=== PATIENT | male | born 1975 | race African-American/Black ===

== ENCOUNTER 2020-07-19 11:11 | Day surgery (SDC) | payer OTHER ==
[2020-07-15 17:44] VITALS: BMI 43.5
[2020-07-19] MEDS ORDERED: ceFAZolin SODIUM 1 GM VIAL ONE (13:49)
[2020-07-19] MEDS ORDERED: LIDOCAINE HCL/PF 2% SDV 5ML VIAL ONE (13:49)
[2020-07-19] MEDS ORDERED: PROPOFOL 20 ML ONE (13:49)
[2020-07-19] MEDS ORDERED: MIDAZOLAM HCL 2 MG/2 ML SINGLE DOSE VIAL ONE (13:49)
[2020-07-19] MEDS ORDERED: DESFLURANE GAS 240 ML BOTTLE IH ONE (14:48)
[2020-07-19] MEDS ORDERED: ONDANSETRON 4 MG/2 ML VIAL ONE (15:05)
[2020-07-19] MEDS ORDERED: DEXAMETHASONE SOD PHOSPHATE 4 MG/1 ML VIAL ONE (15:05)
[2020-07-19] MEDS ORDERED: BUPIVACAINE HCL/PF 0.25% (2.5MG/ML) 10 ML VIAL IJ ONE (15:32)
[2020-07-19] MEDS ORDERED: ONDANSETRON 4 MG/2 ML VIAL IVPUSH PRN (15:58)
[2020-07-19] MEDS ORDERED: IBUPROFEN 800 MG/8 ML IJ IVPB PRN (15:58)
[2020-07-19] MEDS ORDERED: oxyCODONE HCL 5 MG TABLET PO PRN (15:58)
[2020-07-19] MEDS ORDERED: ACETAMINOPHEN 1000 MG/100 ML VIAL (NON FORMULARY) IVPB PRN (15:59)
[2020-07-19] MEDS ORDERED: LACTATED RINGERS SOLUTION 1,000 ML IV SCH (16:00)
[2020-07-19] MEDS ORDERED: IBUPROFEN 800 MG/8 ML IJ IVPB ONE ×2 (16:34→16:44)
[2020-07-19] MEDS ORDERED: oxyCODONE HCL 5 MG TABLET ONE (17:18)
[2020-07-19 18:08] VITALS: BP 125/87; PULSE 70; TEMP 97.9
== END 2020-07-19 18:07 | disposition home or self-care (01) ==
LOC: FASU 11:11
PROVIDERS: ATTEND Orthopaedic Surgery
PROC: 0LM30ZZ Reattachment of Right Upper Arm Tendon, Open Approach (ICD-10-PCS; principal; 2020-07-19 14:54)
DX: S46.211A Strain of muscle, fascia and tendon of other parts of biceps, right arm, initial encounter (principal); X58.XXXA Exposure to other specified factors, initial encounter; Y92.9 Unspecified place or not applicable; Y93.9 Activity, unspecified; E66.01 Morbid (severe) obesity due to excess calories; Z68.41 Body mass index [BMI] 40.0-44.9, adult
CPT/HCPCS: 94760